=== PATIENT | female | born 1995 | race Hispanic/Latino ===

== ENCOUNTER 2018-04-05 13:29 | Inpatient (IN) | payer MEDICAID, OTHER, SELFPAY ==
[2018-04-05 14:21] VITALS: BMI 22.4
[2018-04-05] MEDS ORDERED: Lidocaine 1% (PF) 30 ML VIAL SC PRN (15:13)
[2018-04-05] MEDS ORDERED: Ondansetron HCl/PF 4 MG/2 ML Vial IVP PRN (15:13)
[2018-04-05] MEDS ORDERED: Acetaminophen 500 MG TAB PO PRN (15:13)
[2018-04-05] MEDS ORDERED: Ibuprofen 800 MG TAB PO PRN (15:13)
[2018-04-05] MEDS ORDERED: Methylergonovine 0.2 MG/ML VIAL IM PRN (15:13)
[2018-04-05] MEDS ORDERED: Misoprostol 200 MCG TAB PR PRN (15:13)
[2018-04-05] MEDS ORDERED: Promethazine HCl 25 MG/ML VIAL IM PRN (15:13)
[2018-04-05] MEDS ORDERED: HYDROcodone/Acetaminophen 5/325 mg Tablet PO PRN ×2 (15:13)
[2018-04-05] MEDS: Lactated Ringer's 1,000 ML IV SCH ×2 (15:45→21:50)
[2018-04-05 15:56] LABS: Hemoglobin 13.3 g/dL (12.0-16.0); Mean Corpuscular HGB CONC 35.9 g/dL (32.0-36.0); Mean Corpuscular Hemoglobin 33.4 pg (27.0-31.0); Mean Corpuscular Volume 92.9 fL (78.0-98.0); Mean Platelet Volume 6.6 fL (7.4-10.4); Platelet Count 300 thou/uL (130-400); RBC Distribution Width 11.8 % (11.5-14.5); Red Blood Cell (RBC) Count 3.98 mill/uL (4.20-5.40); White Blood Cell (WBC) Count 12.8 thou/uL (4.8-10.8)
--- NOTE | 2018-04-05 15:56 | PDOC.LDHP ---
Labor and Delivery H&P Chief complaint: contractions HPI: This is a 22 yo female at 40.1 wk by LMP, confirmed by 13 wk US who presents to L&D with a CC of contractions. She states that they started at 0745 this AM and have been about 5-10 minutes apart. She reports that throughout the day the contractions have been getting stronger. She denies any gush of fluid but does state she has been having some spotting throughout the day. Current gestational age (weeks): 40 (40.1) Due date: 04/04/18 Dating criteria: last menstrual period (Confirmed with 1st trimester US) Grav: 1 Para: 0 OB History Details: Pt. has had wt gain of 28 lbs. This gain is less that we would have expected. During her , there was as concern for decreased growth of the fetus and an anatomy US to gauge size was ordered but pt. never followed up. Current complications: none Abnormal US findings: No Past Medical History: none Current medications: pre- vitamins Previous surgical history: appendectomy Social history: none - Physical Exam Vital signs reviewed and normal: yes General: NAD, resting Heart: RRR Lungs: nonlabored breathing Abdomen: NTTP Extremeties: no edema FHT: category 1 (Baseline 150, moderate variability, accels present, no decels. This is a category 1 FHT), variability present [place] contractions every: 4-5 minutes - Vaginal Exam cm dilated: 5 (No ballotment) Effacement: 100% Station: -2 - OB Labs Blood type: O RH: positive Antibody Screen: negative HIV: negative RPR: negative HEPSAg: negative 1 hour GCT: negative GBS: negative Rubella: immune Additional Labs: Quant gold negative Zika and Dengue negative - Assessment L&D Assessment: term patient in labor - Plan Plan: admit to L&D -: This is a 22 yo female at 40.1 by LMP cw 1st trimester US Active labor SIUP -We will admit to L&D for labor management. Pt. is sergey every 4-5 minutes and cervical check is 5/100/-2. The head is engaged. We will continue two hour labor checks. FHT was category 1. Discussed plan with Dr. Baez <Reggie Young - Last Filed: 04/05/18 15:52> <Chapin Baez - Last Filed: 04/05/18 17:05> Allergies/Adverse Reactions: Allergies Allergy/AdvReac Type Severity Reaction Status Date / Time No Known Allergies Allergy Verified 04/05/18 14:17 Attending Addendum - Attending Addendum Date/Time: 04/05/18 3184 I personally evaluated the patient and discussed the management with Dr. Young. I agree with the History, Examination, Assessment and Plan. <Chapin Baez - Last Filed: 04/05/18 17:05>
[2018-04-05 16:38] LABS: Syphilis Antibody Nonreactive (Nonreactive); Syphilis Antibody Index 0.04 S/CO (<1.00 Non-Reactive)
[2018-04-05 16:39] LABS: HBSAg Index 0.18 S/CO (0-0.99); Hep B Surf Ag Non-Reactive S/CO (NonReactive)
--- NOTE | 2018-04-05 16:53 | PDOC.EVN ---
Event Note - Event Note Event Note: at 40 weeks admitted in labor. PNC at Clinic w/o complications. SVE= 5 cm, slightly posterior, vtx. AROM shows meconium, some particulate. FHTs stable, UCs q 3-4 mins. IUPC placed, amnioinfusion started. Plan: Watch progress, augment if needed.
--- NOTE | 2018-04-05 17:19 | PDOC.LDPN ---
Labor & Delivery Progress Note - Subjective Subjective: painful contractions - Objective Vital signs reviewed and normal: yes General: breathing through contractions Uterine fundus: non tender SVE: 5/100/-1 Dilation: 5 cm Effacement: 100% Station: -1 FHT: category 1 (Moderate variability, accels present, no decels, Baseline 150) Procedures: AROM AROM: meconium stained fluid IUPC placed: yes Resuscitative measures: amniofusion - Assessment (1) Term Code(s): Z34.80 - ENCOUNTER FOR SUPRVSN OF NORMAL , UNSP TRIMESTER Current Visit: Yes Status: Acute Plan: continue plan of care -: This is a 22 yo femlae at 40.1 by LMP cw 1st trimester US Active Labor SIUP -Pt. is admitted to L&D for labor management. Pt. is sergey every 2-3 minutes and cervical check is 5/100/-1. Pt. was AROMed at 1648 meconium was seen. An amnioinfusion was started. Head is engaged. We will check in an hour and start pitocin if unchanged. FHT was category 1. Plan was discussed with Dr. Baez. <Reggie Young - Last Filed: 04/05/18 17:17> Attending Addendum - Attending Addendum Date/Time: 04/05/18 190 I personally evaluated the patient and discussed the management with Dr. Young. I agree with the Assessment and Plan. <Chapin Baez - Last Filed: 04/05/18 19:06>
--- NOTE | 2018-04-05 19:03 | PDOC.EVN ---
Event Note - Event Note Event Note: Exam now by labor RN= rosalio, vtx at 0 station. Stadol given per pt. request. FHTs stable, + accels. UCs q 2-3 min. Progressing, expect .
[2018-04-05] MEDS ORDERED: Butorphanol Tartrate 1 MG/ML VIAL SLOW IVP PRN (19:04)
--- NOTE | 2018-04-05 19:46 | PDOC.LDPN ---
Labor & Delivery Progress Note - Subjective Subjective: painful contractions - Objective Vital signs reviewed and normal: yes General: breathing through contractions Uterine fundus: non tender Dilation: ant lip Effacement: 100% Station: 0 FHT: category 1 (baseline 150, moderate variability, accelerationsx2 ) [place] contractions every: 3 mins AROM: meconium stained fluid (particulate) IUPC placed: yes Resuscitative measures: amniofusion - Assessment (1) Term Code(s): Z34.80 - ENCOUNTER FOR SUPRVSN OF NORMAL , UNSP TRIMESTER Current Visit: Yes Status: Acute Plan: continue plan of care (continued monitoring, prepare for , stadol ordered if requested, pt declines at this time) <Henry Teresa - Last Filed: 04/05/18 19:44> Attending Addendum - Attending Addendum Date/Time: 04/06/18 0833 I personally evaluated the patient and discussed the management with Dr. Teresa. I agree with the Assessment and Plan. <Chapin Baez - Last Filed: 04/06/18 08:33>
--- NOTE | 2018-04-05 21:41 | PDOC.LDPN ---
Labor & Delivery Progress Note - Subjective Subjective: painful contractions - Objective Vital signs reviewed and normal: yes General: breathing through contractions Dilation: ant lip Effacement: 100% Station: 0 FHT: category 1, variability present (baseline 150, accelerationsx2) [place] contractions every: 2-4 mins AROM: meconium stained fluid (particulate) IUPC placed: yes Resuscitative measures: amniofusion - Assessment (1) Term Code(s): Z34.80 - ENCOUNTER FOR SUPRVSN OF NORMAL , UNSP TRIMESTER Current Visit: Yes Status: Acute Plan: continue plan of care -: continue monitoring, prepare for , stadol if needed/pt declines
[2018-04-06] MEDS: NS / Oxytocin 40 units/1000ml 1,000 ML IV PRN ×2 (01:07→02:09)
--- NOTE | 2018-04-06 03:22 | PDOC.OPDEL ---
OB Operative/Delivery Note Delivery Dr/Surgeon: Dr. Thomas, Dr. Teresa Pre-Delivery Diagnosis: active labor Procedure/Post Delivery Dx: spontaneous vaginal delivery Weeks gestation: 40 Anesthesia: none - Findings A Sex: female Weight: 6 lb 14.76 oz - 1 min: 8 - 5 min: 9 - Additional Findings/Plan Placenta delivered: spontaneous (mitchell) Repaired Obstetrical Laceration: none Estimated blood loss: QBL pending Compilations/Other Findings: This is 22 yo F @ 40.1 wks who delivered a viable F at 0059. Following an uneventful antepartum course, a vigorous Female was delivered over an intact perineum in the occipitoanterior position. Anterior Shoulder and then remainder of the body delivered. Nuchal cordx1 . The head was held down. Cord clamped and cut and cord blood collected. Placenta delivered intact (in the Sanchez presentation) with a 3 vessel cord noted. Fundal massage was performed and the fundus was firm. The cervix and vagina were inspected and found to be free of lacerations. Infant went to nursery in good condition for routine care. Apgars were 8/9 at 1 & 5 minutes, respectively. Patient tolerated delivery well and went to after routine recovery/care. Post delivery plan: routine recovery <Henry Teresa - Last Filed: 04/06/18 05:34> Attending Addendum - Attending Addendum Date/Time: 04/06/1813 I was present for the entire delivery. <Sabrina Thomas - Last Filed: 04/06/18 08:13>
[2018-04-06] MEDS ORDERED: Adacel (T-DAP) 0.5 ML VIAL IM ONE (04:15)
[2018-04-06] MEDS ORDERED: Bisacodyl 10 MG SUPP PR PRN (04:15)
[2018-04-06] MEDS ORDERED: NS / Oxytocin 40 units/1000ml 1,000 ML IV SCH (04:15)
[2018-04-06] MEDS ORDERED: Milk Of Magnesia 30 ML UDCUP PO PRN (04:15)
[2018-04-06] MEDS: Docusate Calcium (SURFAK) 240 MG CAP PO SCH ×2 (09:40→22:20)
[2018-04-06] MEDS: Ferrous Sulfate 325 MG TAB PO SCH ×2 (09:40→18:42)
--- NOTE | 2018-04-07 06:30 | PDOC.PP ---
Post Progress Note Post Day #: 1 Subjective: Pt seen at bedside breast feeding. FOB also in room. JONEL overnight. Pt denies TOBIAS , change in vision, CP, cough, palpitations, SOB, NVD. Pt states her pain is controlled and lochia is minimal. Pt ambulating minimally but tolerating PO well and has urinated and had BM. PO intake tolerated: yes Flatus: yes Ambulation: yes Vital Signs (12 hours) Temp Pulse Resp BP 04/06/18 22:10 98.1 F 84 18 84/49 L Weight Weight 55.792 kg - Physical Examination General: NAD Cardiovascular: no m/r/g, RRR Respiratory: clear to auscultation bilaterally, non-labored breathing Abdominal: + bowel sounds, no distention, appropriately TTP Fundus firm & at: 1 cm below umbilicus Extremities: negative homans (B) Neurological: no gross focal deficits Psychiatric: A&Ox3, normal affect Result Diagrams: 04/05/18 15:41 Additional Labs: Post Labs Blood Type O POSITIVE 04/05/18 15:41 Hep Bs Antigen Non-Reactive S/CO (NonReactive) 04/05/18 15:41 (1) Term delivered Code(s): O80 - ENCOUNTER FOR FULL-TERM UNCOMPLICATED DELIVERY Status: Acute Comment: -PPD 1 s/p 04/06 @ 0059 -Pain controlled, tolerating PO, voiding normally, ambulating, minimal lochia. -No plans for contraception at this time. -Repeat H/H this AM with low normal BPs although pt asymptomatic. -Observe through today and likely discharge home tomorrow morning. - Assessment/Plan disposition: Pt stable and doing well. Routine care s/p . <Sammy Herring - Last Filed: 04/07/18 07:42> Vital Signs (12 hours) Temp Pulse Resp BP 04/08/18 00:00 98.1 F 66 14 101/59 L Weight Weight 55.792 kg Result Diagrams: 04/07/18 09:26 Additional Labs: Post Labs Blood Type O POSITIVE 04/05/18 15:41 Hep Bs Antigen Non-Reactive S/CO (NonReactive) 04/05/18 15:41 <Chapin Baez - Last Filed: 04/08/18 08:42> Attending Addendum - Attending Addendum Date/Time: 04/08/1841 I personally evaluated the patient and discussed the management with Dr. Herring. I agree with the Assessment and Plan. <Chapin Baez - Last Filed: 04/08/18 08:42>
--- NOTE | 2018-04-07 06:43 | PDOC.EVN ---
Event Note - Event Note Event Note: PPD#1 Resting comfortably. VSS AF. Lochia small. Plan: Routine PP care
[2018-04-07] MEDS: Docusate Calcium (SURFAK) 240 MG CAP PO SCH ×2 (09:29→21:46)
[2018-04-07] MEDS: Ferrous Sulfate 325 MG TAB PO SCH ×2 (09:32→17:53)
[2018-04-08] MEDS ORDERED: Fentanyl 100 MCG/2 ML VIAL ONE (07:21)
--- NOTE | 2018-04-08 08:27 | PDOC.PP ---
Post Progress Note Post Day #: 2 Subjective: Pt seen at bedside with in NAD. JONEL overnight. Pt notes she is doing very well and denies TOBIAS, change in vision, CP, palpitations, SOB, NVD. PO intake tolerated: yes Flatus: yes Ambulation: yes Vital Signs (12 hours) Temp Pulse Resp BP 04/08/18 00:00 98.1 F 66 14 101/59 L 04/07/18 20:35 99.3 F 76 16 100/55 L Weight Weight 55.792 kg - Physical Examination General: NAD Cardiovascular: no m/r/g, RRR Respiratory: clear to auscultation bilaterally, non-labored breathing Abdominal: + bowel sounds, appropriately TTP Fundus firm & at: 2 cm below umbilicus Extremities: negative homans (B) Neurological: no gross focal deficits Psychiatric: A&Ox3, normal affect Result Diagrams: 04/07/18 09:26 Additional Labs: Post Labs Blood Type O POSITIVE 04/05/18 15:41 Hep Bs Antigen Non-Reactive S/CO (NonReactive) 04/05/18 15:41 (1) Term delivered Code(s): O80 - ENCOUNTER FOR FULL-TERM UNCOMPLICATED DELIVERY Status: Acute Comment: -PPD 2 s/p 04/06 @ 0059 -Pain controlled, tolerating PO, voiding normally, ambulating, minimal lochia. -No plans for contraception at this time. -Repeat H/H wnl. -Pt stable for discharge home today and follow up in 2 weeks. - Assessment/Plan disposition: Discharge home with ibuprofen for pain control. Routine follow up at [facility] in 2 weeks.
[2018-04-08 08:43] VITALS: BP 111/53; TEMP 98
[2018-04-08] MEDS: Docusate Calcium (SURFAK) 240 MG CAP PO SCH (09:01)
[2018-04-08] MEDS: Ferrous Sulfate 325 MG TAB PO SCH (09:01)
== END 2018-04-08 15:00 | disposition home or self-care (01) | DRG 775 ==
LOC: L&D/OP 13:29 → L&D 15:45 → 3SW 04-06 04:15
PROVIDERS: ADMIT Obstetrics & Gynecology; ATTEND Obstetrics & Gynecology
PROC: 10E0XZZ Delivery of Products of Conception, External Approach (ICD-10-PCS; principal; 2018-04-06)
PROC: 3E0E3GC Introduction of Other Therapeutic Substance into Products of Conception, Percutaneous Approach (ICD-10-PCS; 2018-04-06)
DX: O48.0 Post-term pregnancy (principal); Z3A.40 40 weeks gestation of pregnancy; Z37.0 Single live birth; O69.81X0 Labor and delivery complicated by cord around neck, without compression, not applicable or unspecified; O77.0 Labor and delivery complicated by meconium in amniotic fluid
CPT/HCPCS: 36415; 51701; 85014; 85018; 85027; 86780; 86850; 86900; 86901; 87340; 99285; J2001; J3010